=== PATIENT | female | born 1965 | race Caucasian/White ===

== ENCOUNTER → 2016-11-26 | Outpatient (CLI) | payer OTHER | LOC: RAD 12:32 | DX: M54.30 Sciatica, unspecified side (principal) | CPT/HCPCS: 72100; 72220 ==

== ENCOUNTER → 2017-01-07 | Outpatient (CLI) | payer OTHER | LOC: KOH-I 12:57 | DX: N28.9 Disorder of kidney and ureter, unspecified (principal); N27.1 Small kidney, bilateral; N28.89 Other specified disorders of kidney and ureter | CPT/HCPCS: 76775 ==

== ENCOUNTER → 2020-09-28 | Outpatient (CLI) | payer OTHER | LOC: MAMO 08-22 08:30 | DX: Z12.31 Encounter for screening mammogram for malignant neoplasm of breast (principal) | CPT/HCPCS: 77063; 77067 ==

== ENCOUNTER → 2021-03-08 | Outpatient (CLI) | payer OTHER | LOC: EXRD 09:28 | DX: M54.5 Low back pain (principal); M47.816 Spondylosis without myelopathy or radiculopathy, lumbar region | CPT/HCPCS: 72100; 72220 ==

== ENCOUNTER 2021-08-22 23:49 | Emergency (ER) | payer OTHER ==
[2021-08-23] MEDS ORDERED: AUGMENTIN 875-1 EACH PO (02:30)
== END 2021-08-23 02:41 | disposition home or self-care (01) ==
LOC: ER1 23:49
DX: J18.9 Pneumonia, unspecified organism (principal); K21.9 Gastro-esophageal reflux disease without esophagitis; E03.9 Hypothyroidism, unspecified; J32.9 Chronic sinusitis, unspecified
CPT/HCPCS: 71046; 82962; 99283

== ENCOUNTER 2021-09-15 12:10 | Emergency (ER) | payer OTHER ==
[~2021-09-15 12:10] MED LIST: AUGMENTIN 875-1 EACH PO
== END 2021-09-15 15:27 | disposition home or self-care (01) ==
LOC: ER1 12:10
DX: S29.011A Strain of muscle and tendon of front wall of thorax, initial encounter (principal); X58.XXXA Exposure to other specified factors, initial encounter
CPT/HCPCS: 71045; 99283

== ENCOUNTER → 2021-10-03 | Outpatient (CLI) | payer OTHER | LOC: MAMO 09-29 09:00 | DX: Z12.31 Encounter for screening mammogram for malignant neoplasm of breast (principal) | CPT/HCPCS: 77063; 77067 ==

== ENCOUNTER → 2022-04-11 | Outpatient (CLI) | payer OTHER | LOC: KOH-I 04-05 14:00 | DX: R31.9 Hematuria, unspecified (principal); M54.50 Low back pain, unspecified | CPT/HCPCS: 74176 ==